=== PATIENT | male | born 1965 | race Caucasian/White ===

== ENCOUNTER → 2022-01-17 | Day surgery (SDC) | payer OTHER ==
[~2022-01-17] VITALS: Ht 198.1 cm; Wt 109.8 kg
[~2022-01-17] MED LIST: BACLOFEN 10MG T10 MG PO; METFORMIN HCL500 M1 PO; NAPROXEN500 MG PO; NORCO 5-325 TA1 EACH PO
[2022-01-17 09:57] LABS: HCT 51.3 % (42.0-52.0); HGB 18.2 g/dl (13.2-18.0); MCH 34.6 pg (25.0-31.0); MCHC 35.5 g/dL (32.0-36.0); MCV 97.5 fL (78.0-100.0); MPV 10.5 fL (6.0-9.5); RBC 5.26 M/uL (4.70-6.00); RDW 12.4 % (11.5-14.0); WBC 4.8 K/uL (4.0-10.5)
[2022-01-17 10:32] LABS: ALBUMIN 3.6 g/dL (3.4-5.0); BILIRUBIN - TOTAL 2.6 mg/dL (0.2-1.0); BUN/CREAT RATIO (CALC) 13.6 RATIO; CREATININE 0.81 mg/dL (0.67-1.17); GLOBULIN (CALCULATION) 3.3 g/dL; POTASSIUM 3.8 mmol/L (3.5-5.1); TOTAL PROTEIN 6.9 g/dL (6.4-8.2)
== END | disposition home or self-care (01) ==
LOC: FAS 09:23
PROVIDERS: Surgery
DX: D12.8 Benign neoplasm of rectum (principal); K62.89 Other specified diseases of anus and rectum; E11.9 Type 2 diabetes mellitus without complications; Z88.0 Allergy status to penicillin; Z79.84 Long term (current) use of oral hypoglycemic drugs
CPT/HCPCS: 36415; 80053; J2704; J7120

== ENCOUNTER → 2022-03-04 | Day surgery (SDC) | payer OTHER ==
[~2022-03-04] VITALS: Ht 198.1 cm; Wt 109.8 kg
== END | disposition home or self-care (01) ==
LOC: FAS 09:32
DX: C20 Malignant neoplasm of rectum (principal); I10 Essential (primary) hypertension; E11.9 Type 2 diabetes mellitus without complications; Z79.84 Long term (current) use of oral hypoglycemic drugs; Z88.0 Allergy status to penicillin
CPT/HCPCS: J0690; J1170; J2250; J2704; J3010; J7120

== ENCOUNTER → 2022-04-11 | Day surgery (SDC) | payer OTHER ==
[~2022-04-11] VITALS: Ht 198.1 cm; Wt 109.8 kg
== END | disposition home or self-care (01) ==
LOC: FAS 07:48
DX: I87.2 Venous insufficiency (chronic) (peripheral) (principal); E11.9 Type 2 diabetes mellitus without complications; Z79.84 Long term (current) use of oral hypoglycemic drugs; Z88.0 Allergy status to penicillin
CPT/HCPCS: 71045; 76000; C1788; J1644; J1956; J2250; J2704; J3010; J7120